=== PATIENT | male | born 1980 | race Caucasian/White ===

== ENCOUNTER 2020-11-21 07:33 | Emergency (ER) | payer BC ==
[2020-11-21] MEDS ORDERED: AMOXICILLIN500 M1 PO (07:49)
[2020-11-21] MEDS ORDERED: HYDROCODON-ACE1 EAC4 PO ×2 (07:49→08:06)
== END 2020-11-21 08:10 | disposition home or self-care (01) ==
LOC: ER1 07:33
DX: K02.9 Dental caries, unspecified (principal); R68.84 Jaw pain
CPT/HCPCS: 99283